=== PATIENT | female | born 1995 | race Caucasian/White ===

== ENCOUNTER 2017-02-14 10:03 | Emergency (ER) | payer MEDICAID ==
[~2017-02-14] VITALS: Ht 152.4 cm; Wt 65.8 kg
[2017-02-14 10:07] VITALS: BP_SYST 119
[2017-02-14] MEDS ORDERED: KETOROLAC TROMETHAMINE 60 MG/2 ML VIAL IM ONE (11:00)
[2017-02-14 11:18] VITALS: BP_SYST 119
== END 2017-02-14 11:18 | disposition home or self-care (01) ==
LOC: SED 10:03
DX: S12.9XXA Fracture of neck, unspecified, initial encounter (principal); W19.XXXA Unspecified fall, initial encounter; Y93.89 Activity, other specified; Y92.89 Other specified places as the place of occurrence of the external cause; Y99.8 Other external cause status
CPT/HCPCS: 96372; 99283; J1885

== ENCOUNTER 2017-05-22 11:26 | Emergency (ER) | payer SELFPAY ==
[~2017-05-22] VITALS: Ht 154.9 cm; Wt 61.2 kg
[2017-05-22 11:32] VITALS: BP_SYST 130
== END 2017-05-22 14:38 | disposition left against medical advice (07) ==
LOC: SED 11:26
DX: R53.1 Weakness (principal); R05 Cough; R06.02 Shortness of breath; Z53.21 Procedure and treatment not carried out due to patient leaving prior to being seen by health care provider
CPT/HCPCS: 81025